=== PATIENT | male | born 1980 | race Caucasian/White ===

== ENCOUNTER 2017-08-05 11:08 | Emergency (ER) | payer SELFPAY ==
--- NOTE | 2017-08-05 11:30 | C.PDOC ---
History Of Present Illness 36 year old male presents to the ED for evaluation of injury and pain to left shoulder after he accidentally slipped and fell earlier today. He states he has been unable to move his shoulder since the fall. Patient denies any other injuries and prior shoulder injuries. Patient is right-hand dominant and has been NPO since 9pm last night. Time Seen by Provider: 08/05/17 11:24 Chief Complaint (Nursing): Upper Extremity Problem/Injury History Per: Patient History/Exam Limitations: no limitations Onset/Duration Of Symptoms: Hrs Current Symptoms Are (Timing): Still Present Quality: "Pain" Additional History Per: Patient Past Medical History Reviewed: Historical Data, Nursing Documentation, Vital Signs Vital Signs: Last Vital Signs Temp 97.5 F L 08/05/17 11:15 Pulse 79 08/05/17 11:15 Resp 14 08/05/17 11:15 BP 173/119 H 08/05/17 11:15 Pulse Ox 98 08/05/17 12:31 - Medical History PMH: Kidney Stones Surgical History: No Surg Hx Family History: States: Unknown Family Hx - Social History Hx Alcohol Use: Yes Hx Substance Use: Yes Review Of Systems Musculoskeletal: Positive for: Shoulder Pain (left) Neurological: Negative for: Other (head injury/LOC ) Physical Exam - Physical Exam Appears: Non-toxic, No Acute Distress Skin: Normal Color, Warm, Dry Head: Atraumatic, Normacephalic Neck: No Midline Cervical Tenderness, No Paracervical Tenderness, Supple Chest: Symmetrical, No Deformity, No Tenderness Cardiovascular: Rhythm Regular, No Murmur Respiratory: Normal Breath Sounds, No Rales, No Rhonchi, No Wheezing Extremity: No Normal ROM (no ROM in left shoulder secondary to pain ), Tenderness (generalized, left shoulder ), Capillary Refill (less than 2 seconds) , No Deformity (gross ), Swelling (generalized, to left shoulder), No Other ( subluxation ) Neurological/Psych: Oriented x3, Normal Speech, Normal Cognition, Normal Sensation Gait: Steady ED Course And Treatment O2 Sat by Pulse Oximetry: 98 (on RA) Pulse Ox Interpretation: Normal Progress Note: Left shoulder XR ordered and reviewed. Percocet PO and Zofran PO administered. Disposition Counseled Patient/Family Regarding: Studies Performed, Diagnosis, Need For Followup, Rx Given - Disposition Referrals: Maddie Wall MD [Staff Provider] - Disposition: HOME/ ROUTINE Disposition Time: 12:48 Condition: IMPROVED Additional Instructions: WEAR SLING CONTINUOUSLY UNTIL EVALUATION BY ORTHOPEDICS. FOLLOW UP WITH ORTHOPEDICS 1 WEEK. ICE TO AFFECTED AREA. Prescriptions: Ibuprofen [Motrin] 600 mg PO Q6 #30 tab oxyCODONE/Acetaminophen [Percocet 5/325 mg Tab] 2 ea PO Q6 PRN #20 tab PRN Reason: Pain, Moderate (4-7) Instructions: Arm Fracture in Adults (ED) Forms: [facility] ([place]), Work Excuse - Clinical Impression Clinical Impression: Shoulder fracture - Scribe Statement The provider has reviewed the documentation as recorded by the Scribe (Sarika Domingo) Provider Attestation: All medical record entries made by the Scribe were at my direction and personally dictated by me. I have reviewed the chart and agree that the record accurately reflects my personal performance of the history, physical exam, medical decision making, and the department course for this patient. I have also personally directed, reviewed, and agree with the discharge instructions and disposition. Orthopedic Care Application Of:: Sling
[2017-08-05] MEDS ORDERED: Oxycodone/Acetaminophen 5/325 mg Tab PO STA ×2 (11:31→12:51)
[2017-08-05] MEDS ORDERED: Oxycodone/Acetaminophen 5/325 mg Tab ONE ×2 (11:36→13:04)
--- NOTE | 2017-08-05 12:13 | RAD ---
PROCEDURE: Radiographs of the Left Shoulder HISTORY: r/o dislcocation COMPARISON: No prior. FINDINGS: BONES: Mildly comminuted tuberosity fracture major fracture fragment 3.3 x 1.5 cm. No significant appearing displacement . Much smaller comminuted fracture fragments above it. JOINTS: No dislocation. Glenohumeral and acromioclavicular joints preserved. No osteoarthritis. SOFT TISSUES: Normal. OTHER FINDINGS: None. IMPRESSION: Mildly comminuted tuberosity fracture major fracture fragment 3.3 x 1.5 cm. No significant appearing displacement . Much smaller comminuted fracture fragments above it.
[2017-08-05 13:08] VITALS: BP 163/119; PULSE 78; RESP 20; TEMP 97.6; O2SAT 96
== END 2017-08-05 13:08 | disposition home or self-care (01) ==
LOC: C.ER 11:08
DX: S42.292A Other displaced fracture of upper end of left humerus, initial encounter for closed fracture (principal); W01.0XXA Fall on same level from slipping, tripping and stumbling without subsequent striking against object, initial encounter